=== PATIENT | male | born 1985 | race Caucasian/White ===

== ENCOUNTER 2018-12-31 12:01 | Emergency (ER) | payer BC ==
--- NOTE | 2018-12-31 12:52 | EDM.PDOC ---
ED HPI GENERAL MEDICAL PROBLEM - General Chief Complaint: Upper Extremity Injury/Pain Stated Complaint: HURT RT ARM Time Seen by Provider: 12/31/18 12:43 Source of Information: Reports: Patient History Limitations: Reports: No Limitations - History of Present Illness INITIAL COMMENTS - FREE TEXT/NARRATIVE: 33 yo male presents to the emergency room with pain in his right arm. pt was water skiing and fell impacting water on right side does feel that the right arm twisted but unsure how. tinging sensation in right hand initially. generally healthy right wrist Pain Score (Numeric/FACES): 1 - Related Data Allergies Allergy/AdvReac Type Severity Reaction Status Date / Time No Known Allergies Allergy Verified 12/31/18 12:33 Home Meds: Home Meds NK [No Known Home Meds] 12/31/18 [History] Past Medical History - Past Health History Medical/Surgical History: Denies Medical/Surgical History Social & Family History - Tobacco Use Smoking Status *Q: Never Smoker - Recreational Drug Use Recreational Drug Use: No Review of Systems - Review of Systems Review Of Systems: See Below Constitutional: Denies: Chills, Fever Respiratory: Denies: Shortness of Breath, Wheezing Cardiovascular: Denies: Chest Pain Musculoskeletal: Reports: Arm Pain Skin: Reports: Bruising (with abrassions right elbow) ED EXAM, GENERAL - Physical Exam Exam: See Below Free Text/Narrative:: exam limited to right arm Exam Limited By: No Limitations General Appearance: Alert, WD/WN, No Apparent Distress Extremities: Arm Pain (moderate tenderness with palp top posterior lateral right wrist. abrasions sith mild edema and echymosis to posterior medial elbow) Course - Vital Signs Last Recorded V/S: Last Vital Signs Temp 35.9 C 12/31/18 12:28 Pulse 71 12/31/18 12:28 Resp 12 12/31/18 12:28 BP 140/81 12/31/18 12:28 Pulse Ox 99 12/31/18 12:28 - Orders/Labs/Meds Orders: Active Orders 24 hr Category Date Time Status Elbow Min 3V Rt [CR] Stat Exams 12/31/18 12:48 Taken Wrist Comp Min 3V Rt [CR] Stat Exams 12/31/18 12:48 Taken - Radiology Interpretation Free Text/Narrative:: preliminary read distal radial head fracture nondisplaced Departure - Departure Time of Disposition: 13:26 Disposition: Home, Self-Care 01 Condition: Good Clinical Impression: Closed fracture of radius Qualifiers: Encounter type: initial encounter Radius location: head Fracture alignment: nondisplaced Laterality: right Qualified Code(s): S52.124A - Nondisplaced fracture of head of right radius, initial encounter for closed fracture - Discharge Information *PRESCRIPTION DRUG MONITORING PROGRAM REVIEWED*: Not Applicable *COPY OF PRESCRIPTION DRUG MONITORING REPORT IN PATIENT VANESSA: Not Applicable Instructions: Radial Fracture Referrals: PCP,None [Primary Care Provider] - Forms: ED Department Discharge Additional Instructions: keep splint in place until you follow-up with orthopedics end of next week ice as much as possible over the next 72 hours tylenol 1000 mg every 6 hours along with Ibuprofen 400-600 mg every 6 hours for pain - My Orders Last 24 Hours: My Active Orders 12/31/18 12:48 Elbow Min 3V Rt [CR] Stat Wrist Comp Min 3V Rt [CR] Stat - Assessment/Plan Last 24 Hours: My Active Orders 12/31/18 12:48 Elbow Min 3V Rt [CR] Stat Wrist Comp Min 3V Rt [CR] Stat
--- NOTE | 2018-12-31 14:22 | CRLCR ---
Trauma 3 views of the right elbow Findings: Normal alignment. No acute fracture. No acute osseous abnormalities. No effusion is seen. IMPRESSION: 1. No acute fracture. Dictated by Macrina Azar MD @ Dec 31 2018 2:20PM Signed by Dr. Macrina Azar @ Dec 31 2018 2:21PM
--- NOTE | 2018-12-31 14:24 | CRLCR ---
Trauma 4 views of the right wrist. Findings There is normal alignment. There is no acute fracture. No acute osseous abnormalities. Mild soft tissue swelling. No acute fracture. Dictated by Macrina Azar MD @ Dec 31 2018 2:21PM Signed by Dr. Macrina Azar @ Dec 31 2018 2:22PM
== END 2018-12-31 13:45 | disposition home or self-care (01) ==
LOC: JP.ED 12:01
DX: S52.124A Nondisplaced fracture of head of right radius, initial encounter for closed fracture (principal); X50.9XXA Other and unspecified overexertion or strenuous movements or postures, initial encounter; Y93.17 Activity, water skiing and wake boarding
CPT/HCPCS: 29125; 73080-RT; 73110-RT; 99283-25